=== PATIENT | female | born 1950 | race Caucasian/White ===

== ENCOUNTER 2016-12-15 12:43 | Day surgery (SDC) | payer OTHER ==
[2016-12-14 12:14] VITALS: BMI 26.6
[2016-12-15] VITALS (10 sets, daily range): BP systolic 121–145; BP diastolic 52–69; PULSE 80–112; RESP 15–22; Ht 149.9 cm; Wt 66.4 kg
[~2016-12-15] VITALS: Ht 149.9 cm; Wt 66.4 kg
[~2016-12-15 12:43] MED LIST: RANI150T9 PO
[2016-12-15] MEDS ORDERED: SOD CHLORIDE 0.9% 1,000 ML IV SCH (13:30)
[2016-12-15] MEDS ORDERED: CEFAZOLIN 2 GM/50 ML (PMX) 50 ML IVPB SCH (13:30)
--- NOTE | 2016-12-15 13:34 | RADRPT ---
PROCEDURE: Chest Radiograph. CLINICAL INDICATION: Preop TECHNIQUE: Single frontal chest radiograph. COMPARISON: None available FINDINGS: The cardiomediastinal silhouette is within normal limits. No infiltrate or effusion is seen. Th e bones are intact. IMPRESSION: 1. Unremarkable chest radiograph. RPTAT: AA .Jm Betancourt MD, MD Date Time Electronically viewed and signed by .Jm Betancourt MD, on 12/15/2016 13:34 .B/
[2016-12-15] MEDS ORDERED: ONDANSETRON 4 MG INJ ONE (15:43)
[2016-12-15] MEDS ORDERED: PROPOFOL 20 ML ONE (15:43)
[2016-12-15] MEDS ORDERED: LIDOCAINE 2% (SDV) 5 ML INJ ONE (15:43)
[2016-12-15] MEDS ORDERED: METOCLOPRAMIDE 10 MG INJ ONE (15:43)
[2016-12-15] MEDS ORDERED: CEFAZOLIN 1 GM INJ ONE (15:43)
[2016-12-15] MEDS ORDERED: MEPERIDINE 100 MG INJ ONE (15:44)
[2016-12-15] MEDS ORDERED: BUPIVACAINE 0.25% (MPF) 30 ML INJ ONE (15:47)
[2016-12-15] MEDS ORDERED: HYDROCODONE/APAP (5/325) TAB PO ONE (16:30)
--- NOTE | 2016-12-15 16:59 | OPR ---
DATE OF OPERATION: 12/15/2016 INDICATION: This is a 66-year-old female with a left back mass. She requests surgical excision. R isks, alternatives, benefits, and personnel were discussed with the patient. Patient expressed unde rstanding and consents to the operation. PREOPERATIVE DIAGNOSIS: Left back mass. POSTOPERATIVE DIAGNOSIS: Left back mass. OPERATION PERFORMED: 1. Excision of left back mass with a 10 cm size mass and an 11 cm size incision. 2. Localized adjacent tissue transfer with the use of skin flaps. SURGEON: Shae Schwarz MD SPECIMEN: Left back mass. COMPLICATIONS: None. ANESTHESIA: General. DESCRIPTION OF PROCEDURE: The patient was taken to the OR and prepped and draped in the usual ster ile fashion. Surgical timeout was performed. IV antibiotics were given. A transverse incision ove r the left back mass is made with a 10 blade. Dissection cautery was carried down to the mass and c ircumferentially excised. There was good hemostasis. Due to the large tissue defect, localized adj acent tissue transfer with the use of skin flaps was performed. Multi-layer closure with interrupt ed 3-0 Vicryl and skin sammy. Local anesthesia was injected. Dry dressings were applied. Dictated By: SHAE NICHOLS/ABBI Conf#: [id number] DID#: [id number]
[2016-12-15] MEDS ORDERED: DIPHENHYDRAMINE 50 MG INJ IV PRN (17:00)
[2016-12-15] MEDS ORDERED: ONDANSETRON 4 MG INJ IV PRN (17:00)
[2016-12-15] MEDS ORDERED: MEPERIDINE 25 MG INJ IV PRN (17:00)
[2016-12-15] MEDS ORDERED: FENTAnyl 50 MCG/ML VIAL IV PRN ×2 (17:00)
[2016-12-15] MEDS ORDERED: HYDROmorphONE (0.2 MG/ML) 10ML SYG IV PRN ×2 (17:00)
[2016-12-15] MEDS ORDERED: MIDAZOLAM 1 MG/ML 2 ML INJ IV PRN (17:00)
[2016-12-15] MEDS ORDERED: METOCLOPRAMIDE 10 MG INJ IV PRN (17:00)
--- NOTE | 2016-12-15 17:21 | RADRPT ---
Vent Rate: 85 bpm RR Interval: 0 msec [place] Interval: 148 msec QRS Duration: 84 msec QT Interval: 382 msec QTC Interval: 454 msec P-R-T [place]: 47 - 44 - 41 degrees Normal sinus rhythm Normal ECG Electronically Signed By: Jovani Valerio [id number]
== END 2016-12-15 17:54 | disposition home or self-care (01) ==
LOC: SDS 12:43
PROVIDERS: ATTEND Surgery
DX: D17.1 Benign lipomatous neoplasm of skin and subcutaneous tissue of trunk (principal); E66.9 Obesity, unspecified; Z68.29 Body mass index [BMI] 29.0-29.9, adult
CPT/HCPCS: 14000; 71010; 88307; 93005; J0690; J2175; J2405; J2765; Z7512; Z7610

== ENCOUNTER 2016-12-30 09:27 | Emergency (ER) | payer OTHER ==
[~2016-12-30] VITALS: Ht 152.4 cm; Wt 70.0 kg
[2016-12-30 09:33] VITALS: Ht 152.4 cm; Wt 70.0 kg
[2016-12-30] MEDS ORDERED: CEPH-443 PO (11:12)
[2016-12-30] MEDS ORDERED: NAPR-260 PO (11:13)
--- NOTE | 2016-12-30 11:32 | ERD ---
ER Documentation Chief Complaint Date/Time DATE: 12/30/16 TIME: 11:27 Chief Complaint pt bib family with c/o back wound s/p surg few wks ago c/o pain HPI This is a 66-year-old female presents to the ER stating that part of her incision opened yesterday. Patient denies any pain from that area. She denies any discharge or redness from the area. Patient denies any fevers or chills. Patient states that she has had ongoing shoulder and neck pain for the last few months. Patient has not tried anything for the pain. Denies any trauma. She denies any numbness or tingling of her arms. She denies any arm weakness. ROS 12 point review of systems was done, all negative except per HPI. Medications Home Meds Active Scripts Naproxen* (Naprosyn*) 500 Mg Tablet, 500 MG PO BID Y for PAIN AND/OR INFLAMMATION, #30 TAB Prov:FERCHO,CALVIN C 12/30/16 Cephalexin* (Keflex*) 500 Mg Capsule, 500 MG PO QID for 7 Days, CAP Prov:FERCHO,CALVIN C 12/30/16 Allergies Allergies: Coded Allergies: No Known Allergy (Unverified , 12/14/16) PMhx/Soc History of Surgery: Yes (RT CATARACT SURGERY) Anesthesia Reaction: No Hx Neurological Disorder: No Hx Respiratory Disorders: No Hx Cardiac Disorders: No Hx Psychiatric Problems: No Hx Miscellaneous Medical Probl: No Hx Alcohol Use: No Hx Substance Use: No Hx Tobacco Use: No Physical Exam Vitals Vital Signs Date Time Temp Pulse Resp B/P Pulse Ox O2 Delivery O2 Flow Rate FiO2 12/30/16 09:33 97.9 78 16 165/87 99 Physical Exam GENERAL: The patient is well developed and appropriate for usual state of health , in no apparent distress. HEENT: Atraumatic. NECK: C-spine is soft and supple. There is no cervical lymphadenopathy. Patient is TTP to the trapezius muscles CHEST: Clear to auscultation bilaterally. There are no rales, wheezes or rhonchi. HEART: Regular rate and rhythm. No murmurs, clicks, rubs or gallops. EXTREMITIES: Equal pulses bilaterally. There is no peripheral clubbing, cyanosis or edema. No focal swelling or erythema. Full range of motion. Grossly neurovascularly intact. NEURO: Alert and oriented. SKIN: There is healing 8cm linear laceration to the right side of the back. there is a small 1cm area of wound dehiscence. no erythema edema or discharge from the area Procedures/MDM This is a 66-year-old female presents to the ER with wound dehiscence. It was very small and was Dermabond without any complications. Steri-Strips were placed over the Dermabond once it was dried. At this time there is no evidence of infection however patient was given a prescription for Keflex in case she developed redness, discharge. Patient was told to return to ER if any of these symptoms occurred. Patient is to follow-up with her surgeon, she has an appointment for January 09. Patient's back pain is likely muscular. She did not have any cervical vertebral tenderness. Patient is sent home with Keflex and ibuprofen. Follow-up with her primary care doctor within 1-2 days or return to ER sooner if symptoms worsen. My Medical decision making was shared with patient she understands and agrees with plan. Departure Diagnosis: Primary Impression: Wound dehiscence Condition: Stable Patient Instructions: Wound Care Additional Instructions: Llame al doctor DEN y silvia steven ROGER PARA DENTRO DE 1-2 ROCHA.Dgale a la secretaria que nosotros le instruimos hacer esta roger.Avise o llame si greer condicin se empeora antes de la roger. Regresa aqui si peor o no mejor. CALVIN BRANTLEY Dec 30, 2016 11:32
== END 2016-12-30 11:19 | disposition home or self-care (01) ==
LOC: FTE 09:27
DX: T81.31XA Disruption of external operation (surgical) wound, not elsewhere classified, initial encounter (principal); Y82.8 Other medical devices associated with adverse incidents
CPT/HCPCS: 12020; Z7502